=== PATIENT | male | born 1940 | race Caucasian/White ===

== ENCOUNTER 2016-12-14 11:33 | Outpatient (CLI) | payer MEDICARE, OTHER ==
[2016-12-14 12:03] LABS: INR-International Normal Ratio 2.1; Prothrombin Time 23.3 SEC (12.0-14.7)
== END 2016-12-14 11:34 | disposition home or self-care (01) ==
LOC: MADLAB 11:33
PROVIDERS: ATTEND Internal Medicine Cardiovascular Disease
DX: Z09 Encounter for follow-up examination after completed treatment for conditions other than malignant neoplasm (principal); Z86.79 Personal history of other diseases of the circulatory system
CPT/HCPCS: 36415; 85610; 85730

== ENCOUNTER 2016-12-28 13:44 | Outpatient (CLI) | payer MEDICARE, OTHER ==
[2016-12-28 14:24] LABS: INR-International Normal Ratio 1.9; PTT 31.6 SEC (22.9-36.1); Prothrombin Time 21.8 SEC (12.0-14.7)
== END 2016-12-28 13:45 | disposition home or self-care (01) ==
LOC: MADLAB 13:44
PROVIDERS: ATTEND Internal Medicine Cardiovascular Disease
DX: Z09 Encounter for follow-up examination after completed treatment for conditions other than malignant neoplasm (principal); Z86.79 Personal history of other diseases of the circulatory system
CPT/HCPCS: 36415; 85610; 85730

== ENCOUNTER 2017-01-18 13:49 | Outpatient (CLI) | payer MEDICARE, OTHER ==
[2017-01-18 14:50] LABS: INR-International Normal Ratio 1.9; Prothrombin Time 22.2 SEC (12.0-14.7)
== END 2017-01-18 13:50 | disposition home or self-care (01) ==
LOC: MADLABBHPM 13:49
PROVIDERS: ATTEND Internal Medicine Cardiovascular Disease
DX: Z86.79 Personal history of other diseases of the circulatory system (principal)
CPT/HCPCS: 36415; 85610; 85730

== ENCOUNTER 2017-02-08 14:37 | Outpatient (CLI) | payer MEDICARE, OTHER ==
[2017-02-08 15:03] LABS: INR-International Normal Ratio 2.1; PTT 33.1 SEC (22.9-36.1); Prothrombin Time 23.5 SEC (12.0-14.7)
== END 2017-02-08 14:38 | disposition home or self-care (01) ==
LOC: MADLAB 14:37
PROVIDERS: ATTEND Internal Medicine Cardiovascular Disease
DX: Z09 Encounter for follow-up examination after completed treatment for conditions other than malignant neoplasm (principal); Z86.79 Personal history of other diseases of the circulatory system
CPT/HCPCS: 36415; 85610; 85730

== ENCOUNTER 2017-03-29 09:54 | Outpatient (CLI) | payer MEDICARE, OTHER ==
[2017-03-29 10:31] LABS: INR-International Normal Ratio 2.4; Prothrombin Time 26.1 SEC (12.0-14.7)
[2017-03-29 16:58] LABS: PTT 36.7 SEC (22.9-36.1)
== END 2017-03-29 09:55 | disposition home or self-care (01) ==
LOC: MADLAB 09:54
PROVIDERS: ATTEND Internal Medicine Cardiovascular Disease
DX: Z86.79 Personal history of other diseases of the circulatory system (principal)
CPT/HCPCS: 36415; 85610; 85730

== ENCOUNTER 2017-04-21 17:35 | Emergency (ER) | payer MEDICARE, OTHER ==
[2017-04-21] MEDS ORDERED: Nitroglycerin 0.4 MG TAB 1 EACH ONE (17:59)
[2017-04-21 18:18] LABS: #Basophils 0.1 thou/uL (0.0-0.2); #Eosinphils 0.2 thou/uL (0.0-0.7); #Monocytes 0.7 thou/uL (0.11-0.59); #Neutrophils 5.8 thou/uL (1.40-6.50); %Basophils 1.1 % (0.0-1.0); %Eosinophils 3.1 % (0.0-10.0); %Lymphocytes 12.4 % (21.0-51.0); %Monocytes 8.5 % (0.0-10.0); %Neutrophils 74.8 % (42.0-75.0); Hemoglobin 13.8 g/dL (14.0-18.0); Mean Corpuscular HGB CONC 36.1 g/dL (32.0-36.0); Mean Corpuscular Hemoglobin 33.2 pg (27.0-31.0); Mean Corpuscular Volume 91.8 fL (80.0-94.0); Mean Platelet Volume 7.4 fL (7.4-10.4); Platelet Count 180 thou/uL (130-400); RBC Distribution Width 12.2 % (11.5-14.5); Red Blood Cell (RBC) Count 4.17 mill/uL (4.70-6.10); White Blood Cell (WBC) Count 7.7 thou/uL (4.8-10.8)
[2017-04-21 18:21] LABS: ALT (SGPT) 14 U/L (8-55); AST (SGOT) 18 U/L (5-34); Albumin 3.8 g/dL (3.4-4.8); Alkaline Phosphatase 65 U/L (40-150); Anion Gap 12 mmol/L (10-20); BUN (Urea Nitrogen) 19 mg/dL (8.4-25.7); Bilirubin, Total 0.8 mg/dL (0.2-1.2); Calc. Creatinine Clearance 0 mL/min (70-130); Calcium 8.7 mg/dL (7.8-10.44); Carbon Dioxide 25 mmol/L (23-31); Chloride 108 mmol/L (98-107); Estimated GFR-MDRD 75; Globulin 2.5 g/dL (2.4-3.5); Glucose 141 mg/dL (83-110); Potassium 3.9 mmol/L (3.5-5.1); Protein, Total 6.3 g/dL (5.8-8.1); Sodium 141 mmol/L (136-145)
[2017-04-21 18:22] LABS: Troponin I 0.013 ng/mL (< 0.028)
[2017-04-21 18:23] LABS: INR-International Normal Ratio 2.9; PTT 39.9 SEC (22.9-36.1); Prothrombin Time 30.1 SEC (12.0-14.7)
[2017-04-21 18:35] LABS: D-Dimer Test Less than 0.27 *mcg/mL (0.27-0.43)
[2017-04-21 18:39] LABS: Bilirubin Negative (Negative); Blood, Urine Trace (Negative); Clarity Clear (Clear); Glucose, Urine (Dipstick) Negative (Negative); Leukocyte Negative (Negative); Nitrite Negative (Negative); Protein, Urine (Dipstick) Negative (Neg-Trace); Urobilinogen 0.2 mg/dL (0.2-1.0)
[2017-04-21 18:53] LABS: RBC/HPF 0-3 HPF (0-3); Squamous Epithelial 0-3 HPF (0-3); WBC/HPF 0-3 HPF (0-3)
[2017-04-21 18:54] LABS: Bacteria/HPF Rare-Few HPF (None Seen)
--- NOTE | 2017-04-21 18:56 | RAD ---
UPRIGHT PORTABLE CHEST ONE VIEW: HISTORY: A 76-year-old male with chest pain. COMPARISON: 08/17/2015, 12/22/2015. FINDINGS: Post-op midline sternotomy and left ICD. Minimal cardiomegaly. No confluent pneumonia, overt edema , or pleural effusion. Stable from prior study. IMPRESSION: Mild cardiomegaly. Post-op midline sternotomy and left ICD. No significant acute process. POS: [facility]
== END 2017-04-21 19:40 | disposition short-term general hospital (02) ==
LOC: MADERS 17:35
DX: R07.9 Chest pain, unspecified (principal); M54.12 Radiculopathy, cervical region; M19.90 Unspecified osteoarthritis, unspecified site; I49.9 Cardiac arrhythmia, unspecified; J45.909 Unspecified asthma, uncomplicated
CPT/HCPCS: 71010; 80053; 81003; 81015; 82553; 83605; 83880; 84484; 85025; 85379; 85610; 85730; 93005; 94760

== ENCOUNTER 2017-07-05 11:59 | Outpatient (CLI) | payer MEDICARE, OTHER ==
[2017-07-05 12:24] LABS: PTT 41.6 SEC (22.9-36.1); Prothrombin Time 32.2 SEC (12.0-14.7)
== END 2017-07-05 12:00 | disposition home or self-care (01) ==
LOC: MADLAB 11:59
PROVIDERS: ATTEND Internal Medicine Cardiovascular Disease
DX: I48.2 Chronic atrial fibrillation (principal)
CPT/HCPCS: 36415; 85610; 85730

== ENCOUNTER 2017-08-24 11:16 | Outpatient (CLI) | payer MEDICARE, OTHER ==
[2017-08-24 12:04] LABS: Prothrombin Time 32.3 SEC (12.0-14.7)
== END 2017-08-24 11:17 | disposition home or self-care (01) ==
LOC: MADLAB 11:16
PROVIDERS: ATTEND Internal Medicine Cardiovascular Disease
DX: I48.2 Chronic atrial fibrillation (principal)
CPT/HCPCS: 36415; 85610

== ENCOUNTER 2017-10-28 11:35 | Outpatient (CLI) | payer MEDICARE, OTHER ==
[2017-10-28 13:20] LABS: Prothrombin Time 45.7 SEC (12.0-14.7)
[2017-10-28 13:38] LABS: INR-International Normal Ratio 4.6
== END 2017-10-28 11:36 | disposition home or self-care (01) ==
LOC: MADLAB 11:35
PROVIDERS: ATTEND Internal Medicine Cardiovascular Disease
DX: I48.2 Chronic atrial fibrillation (principal)
CPT/HCPCS: 36415; 85610

== ENCOUNTER 2017-11-02 12:04 | Emergency (ER) | payer MEDICARE, OTHER ==
--- NOTE | 2017-11-02 12:49 | RAD ---
CHEST PA AND LATERAL: Date: 11/02/17 HISTORY: 77-year-old male with cough. COMPARISON: 12/22/15 and 04/21/17. FINDINGS: Marked cardiomegaly, somewhat increased in size from the prior study. Postop midline sternotomy and l eft ICD changes. Blunting to both costophrenic angles suggesting small pleural effusions. No confluen t pneumonia or overt edema. Atherosclerosis of aorta with ectasia. IMPRESSION: Marked cardiomegaly, slightly larger than on the prior study. Bilateral costophrenic angle blunting s uggesting small pleural effusions. No confluent pneumonia, overt edema, or other overt acute process. POS: [facility]
[2017-11-02 13:19] LABS: #Basophils 0.2 thou/uL (0.0-0.2); #Eosinphils 0.1 thou/uL (0.0-0.7); #Lymphocytes 0.8 thou/uL (1.20-3.40); #Monocytes 0.9 thou/uL (0.11-0.59); #Neutrophils 7.7 thou/uL (1.40-6.50); %Basophils 1.8 % (0.0-1.0); %Eosinophils 0.7 % (0.0-10.0); %Lymphocytes 8.6 % (21.0-51.0); %Monocytes 9.6 % (0.0-10.0); %Neutrophils 79.3 % (42.0-75.0); Hemoglobin 12.9 g/dL (14.0-18.0); Mean Corpuscular HGB CONC 33.4 g/dL (32.0-36.0); Mean Corpuscular Hemoglobin 31.2 pg (27.0-31.0); Mean Corpuscular Volume 93.3 fl (80.0-94.0); Mean Platelet Volume 8.2 fL (7.4-10.4); Platelet Count 171 thou/uL (130-400); Red Blood Cell (RBC) Count 4.15 mill/uL (4.70-6.10); White Blood Cell (WBC) Count 9.7 thou/uL (4.8-10.8)
[2017-11-02 13:35] LABS: Prothrombin Time 45.5 SEC (12.0-14.7)
[2017-11-02 13:37] LABS: Anion Gap 16 mmol/L (10-20); BUN (Urea Nitrogen) 13 mg/dL (8.4-25.7); Calc. Creatinine Clearance 0 mL/min (70-130); Calcium 8.8 mg/dL (7.8-10.44); Carbon Dioxide 24 mmol/L (23-31); Chloride 106 mmol/L (98-107); Estimated GFR-MDRD Greater than 90; Glucose 110 mg/dL (83-110); INR-International Normal Ratio 4.5; Magnesium 1.9 mg/dL (1.6-2.6); Potassium 3.6 mmol/L (3.5-5.1); Sodium 142 mmol/L (136-145)
== END 2017-11-02 14:00 | disposition home or self-care (01) ==
LOC: MADERS 12:04
DX: J90 Pleural effusion, not elsewhere classified (principal); Z86.718 Personal history of other venous thrombosis and embolism; J45.909 Unspecified asthma, uncomplicated; I48.92 Unspecified atrial flutter; I34.0 Nonrheumatic mitral (valve) insufficiency; I38 Endocarditis, valve unspecified; Z79.899 Other long term (current) drug therapy; Z79.01 Long term (current) use of anticoagulants
CPT/HCPCS: 71020; 80048; 83735; 83880; 85025; 85610; 93005

== ENCOUNTER 2018-02-01 13:13 | Outpatient (CLI) | payer MEDICARE, OTHER ==
[2018-02-01 14:14] LABS: INR-International Normal Ratio 2.5; Prothrombin Time 28.3 SEC (12.0-14.7)
== END 2018-02-01 13:14 | disposition home or self-care (01) ==
LOC: MADLABBHPM 13:13
PROVIDERS: ATTEND Family Medicine
DX: I48.2 Chronic atrial fibrillation (principal)
CPT/HCPCS: 36415; 85610

== ENCOUNTER 2018-03-16 14:46 | Outpatient (CLI) | payer MEDICARE, OTHER ==
[2018-03-16 15:05] LABS: INR-International Normal Ratio 3.1; Prothrombin Time 33.2 SEC (12.0-14.7)
== END 2018-03-16 14:47 | disposition home or self-care (01) ==
LOC: MADLAB 14:46
PROVIDERS: ATTEND Internal Medicine Cardiovascular Disease
DX: I48.2 Chronic atrial fibrillation (principal)
CPT/HCPCS: 36415; 85610

== ENCOUNTER 2018-07-04 14:14 | Outpatient (CLI) | payer MEDICARE, OTHER ==
[2018-07-04 14:43] LABS: INR-International Normal Ratio 2.7; Prothrombin Time 28.7 SEC (12.0-14.7)
== END 2018-07-04 14:15 | disposition home or self-care (01) ==
LOC: MADLAB 14:14
PROVIDERS: ATTEND Internal Medicine Cardiovascular Disease
DX: I48.2 Chronic atrial fibrillation (principal)
CPT/HCPCS: 36415; 85610

== ENCOUNTER 2018-08-24 10:29 | Emergency (ER) | payer MEDICARE, OTHER ==
--- NOTE | 2018-08-24 11:44 | RAD ---
RIGHT FOOT THREE VIEWS: HISTORY: Right foot pain. FINDINGS: Lisfranc joint alignment is anatomic. The plantar arch is maintained. Moderate joint space narrowin g and osteophytosis throughout the foot. Hallux valgus and bunion deformity. No acute fracture, dis location, or aggressive osseous erosions. Prominent calcification throughout the arterial structures . Large plantar enthesophyte at the inferior aspect of the calcaneus. IMPRESSION: 1. Osteoarthritic changes. 2. Hallux valgus and bunion deformity. 3. Plantar heel spur. 4. Atherosclerosis. POS: [facility]
== END 2018-08-24 11:50 | disposition home or self-care (01) ==
LOC: MADERS 10:29
DX: S93.601A Unspecified sprain of right foot, initial encounter (principal); J45.909 Unspecified asthma, uncomplicated; I49.9 Cardiac arrhythmia, unspecified; Z87.442 Personal history of urinary calculi; Z86.718 Personal history of other venous thrombosis and embolism; X50.1XXA Overexertion from prolonged static or awkward postures, initial encounter

== ENCOUNTER 2018-11-04 14:07 | Outpatient (CLI) | payer MEDICARE, OTHER ==
--- NOTE | 2018-11-04 15:44 | RAD ---
RADIOGRAPH CHEST 2 VIEWS: DATE: 11/04/18 TIME: 1419 hours HISTORY: 78-year-old male for health maintenance FINDINGS: There is cardiomegaly. The thoracic aorta is tortuous and ectatic. There is no evidence of air space density, pulmonary edema, or pneumothorax. There is no pleural effusion. There is a dual lead left subclavian pacemaker. There are sternotomy wires. The transverse diameter o f the heart appears slightly smaller on the current study compared to previous. This difference may o r may not be due to slight positional differences. IMPRESSION: 1. No acute pulmonary findings. 2. Cardiomegaly without congestive heart failure. 3. Ectasia of thoracic aorta. 4. Pacemaker. 5. Previous open heart surgery. lara [] POS: [facility]
== END 2018-11-04 14:08 | disposition home or self-care (01) ==
LOC: MADRAD 14:07
PROVIDERS: ATTEND Internal Medicine
DX: Z00.00 Encounter for general adult medical examination without abnormal findings (principal); I51.7 Cardiomegaly; I77.810 Thoracic aortic ectasia; Z95.0 Presence of cardiac pacemaker
CPT/HCPCS: 71046

== ENCOUNTER 2019-01-02 13:58 | Outpatient (CLI) | payer MEDICARE, OTHER ==
[2019-01-02 14:18] LABS: INR-International Normal Ratio 2.2; Prothrombin Time 24.5 SEC (12.0-14.7)
== END 2019-01-02 13:59 | disposition home or self-care (01) ==
LOC: MADLAB 13:58
PROVIDERS: ATTEND Internal Medicine Cardiovascular Disease
DX: Z51.81 Encounter for therapeutic drug level monitoring (principal); I48.2 Chronic atrial fibrillation; Z79.01 Long term (current) use of anticoagulants
CPT/HCPCS: 36415; 85610

== ENCOUNTER 2019-01-30 15:37 | Emergency (ER) | payer MEDICARE, OTHER ==
--- NOTE | 2019-01-30 16:46 | RAD ---
CHEST PA AND LATERAL: History: Right sided chest discomfort. Cough. Comparison: 11-04-18 FINDINGS: Minimal cardiomegaly. Extensive atherosclerotic ectatic changes of the aorta. Post underlying sternot jose g. Left ICD. Hyperinflation and chronic lung changes bilaterally, stable. IMPRESSION: Stable hyperinflation and chronic lung changes. Stable cardiomegaly with post underlying sternotomy a nd left ICD. No significant new process. POS: [facility]
== END 2019-01-30 16:43 | disposition home or self-care (01) ==
LOC: MADERS 15:37
DX: R09.1 Pleurisy (principal); K43.9 Ventral hernia without obstruction or gangrene; Z86.718 Personal history of other venous thrombosis and embolism; J45.909 Unspecified asthma, uncomplicated; Z79.899 Other long term (current) drug therapy; Z79.51 Long term (current) use of inhaled steroids
CPT/HCPCS: 71046

== ENCOUNTER 2019-02-28 14:36 | Outpatient (CLI) | payer MEDICARE, OTHER ==
[2019-02-28 15:00] LABS: INR-International Normal Ratio 2.6
== END 2019-02-28 14:37 | disposition home or self-care (01) ==
LOC: MADLABBHPM 14:36
PROVIDERS: ATTEND Internal Medicine Cardiovascular Disease
DX: I48.2 Chronic atrial fibrillation (principal)
CPT/HCPCS: 36415; 85610

== ENCOUNTER 2019-05-17 10:48 | Outpatient (CLI) | payer MEDICARE, OTHER ==
[2019-05-17 12:02] LABS: INR-International Normal Ratio 2.3; Prothrombin Time 25.6 SEC (12.0-14.7)
== END 2019-05-17 10:49 | disposition home or self-care (01) ==
LOC: MADLAB 10:48
PROVIDERS: ATTEND Internal Medicine Cardiovascular Disease
DX: I48.0 Paroxysmal atrial fibrillation (principal)
CPT/HCPCS: 36415; 85610

== ENCOUNTER 2019-09-07 14:01 | Outpatient (CLI) | payer MEDICARE, OTHER ==
[2019-09-07 14:25] LABS: INR-International Normal Ratio 2.5
== END 2019-09-07 14:02 | disposition home or self-care (01) ==
LOC: MADLAB 14:01
PROVIDERS: ATTEND Internal Medicine Cardiovascular Disease
DX: I48.0 Paroxysmal atrial fibrillation (principal)
CPT/HCPCS: 36415; 85610

== ENCOUNTER 2019-11-09 14:12 | Emergency (ER) | payer MEDICARE, OTHER ==
[2019-11-09] MEDS ORDERED: Loperamide HCl 2 MG CAP ONE (14:55)
== END 2019-11-09 15:04 | disposition home or self-care (01) ==
LOC: MADERS 14:12
DX: R19.7 Diarrhea, unspecified (principal); M19.90 Unspecified osteoarthritis, unspecified site; I49.9 Cardiac arrhythmia, unspecified; I48.92 Unspecified atrial flutter; J45.909 Unspecified asthma, uncomplicated; Z79.899 Other long term (current) drug therapy; Z79.01 Long term (current) use of anticoagulants; Z86.718 Personal history of other venous thrombosis and embolism; Z79.51 Long term (current) use of inhaled steroids
CPT/HCPCS: 99283

== ENCOUNTER 2019-11-28 14:52 | Emergency (ER) | payer MEDICARE, OTHER ==
[~2019-11-28 14:52] MED LIST: Sterile Water Irrigation 1,000 ML BOT ONE
[2019-11-28 15:33] LABS: Bilirubin Small (Negative); Blood, Urine Large (Negative); Clarity Cloudy (Clear); Glucose, Urine (Dipstick) Negative (Negative); Leukocyte Trace (Negative); Nitrite Negative (Negative); Protein, Urine (Dipstick) 100 mg/dL (Neg-Trace)
[2019-11-28 15:35] LABS: Bacteria/HPF Rare-Few HPF (None Seen); RBC/HPF Greater than 50 HPF (0-3); Squamous Epithelial None Seen HPF (0-3)
[2019-11-28 15:42] LABS: #Basophils 0.1 thou/uL (0.0-0.2); #Eosinphils 0.1 thou/uL (0.0-0.7); #Monocytes 0.8 thou/uL (0.11-0.59); #Neutrophils 8.1 thou/uL (1.40-6.50); %Basophils 1.4 % (0.0-1.0); %Eosinophils 1.1 % (0.0-10.0); %Lymphocytes 9.7 % (21.0-51.0); %Monocytes 8.1 % (0.0-10.0); %Neutrophils 79.7 % (42.0-75.0); Hemoglobin 11.9 g/dL (14.0-18.0); Mean Corpuscular HGB CONC 31.3 g/dL (32.0-36.0); Mean Corpuscular Hemoglobin 29.8 pg (27.0-31.0); Mean Corpuscular Volume 95.3 fL (78.0-98.0); Mean Platelet Volume 8.3 fL (7.4-10.4); Platelet Count 236 thou/uL (130-400); RBC Distribution Width 12.6 % (11.5-14.5); Red Blood Cell (RBC) Count 4.01 mill/uL (4.70-6.10); White Blood Cell (WBC) Count 10.2 thou/uL (4.8-10.8)
[2019-11-28 15:50] LABS: Calcium 8.2 mg/dL (7.8-10.44); Chloride 108 mmol/L (98-107); Potassium 3.9 mmol/L (3.5-5.1); Sodium 142 mmol/L (136-145)
[2019-11-28] MEDS ORDERED: Lidocaine 2% Jelly 5 ML TUBE ONE (15:54)
[2019-11-28 16:00] LABS: PTT 42.3 SEC (22.9-36.1)
[2019-11-28 16:01] LABS: Prothrombin Time 40.7 SEC (12.0-14.7)
[2019-11-28 16:06] LABS: INR-International Normal Ratio 4.3
[2019-11-28 16:11] LABS: Anion Gap 15 mmol/L (10-20); BUN (Urea Nitrogen) 14 mg/dL (8.4-25.7); Calc. Creatinine Clearance 0 mL/min (70-130); Carbon Dioxide 23 mmol/L (23-31); Estimated GFR-MDRD 87; Glucose 127 mg/dL (83-110)
== END 2019-11-28 18:49 | disposition home or self-care (01) ==
LOC: MADERS 14:52
DX: R31.0 Gross hematuria (principal); R00.0 Tachycardia, unspecified; R79.1 Abnormal coagulation profile; M19.90 Unspecified osteoarthritis, unspecified site; I49.9 Cardiac arrhythmia, unspecified; I48.92 Unspecified atrial flutter; J45.909 Unspecified asthma, uncomplicated; Z79.899 Other long term (current) drug therapy; Z79.51 Long term (current) use of inhaled steroids; Z86.718 Personal history of other venous thrombosis and embolism; Z79.01 Long term (current) use of anticoagulants
CPT/HCPCS: 51702; 80048; 81003; 81015; 83880; 84484; 85025; 85610; 85730; 87086; 87186; 93005; 96374; A4217

== ENCOUNTER 2019-12-04 13:07 | Outpatient (CLI) | payer MEDICARE, OTHER ==
[2019-12-04 13:31] LABS: INR-International Normal Ratio 1.6
== END 2019-12-04 13:08 | disposition home or self-care (01) ==
LOC: MADLAB 13:07
PROVIDERS: ATTEND Internal Medicine Cardiovascular Disease
DX: Z51.81 Encounter for therapeutic drug level monitoring (principal); I48.0 Paroxysmal atrial fibrillation; Z79.01 Long term (current) use of anticoagulants
CPT/HCPCS: 36415; 85610

== ENCOUNTER 2019-12-12 09:40 | Outpatient (CLI) | payer MEDICARE, OTHER ==
[2019-12-12 10:00] LABS: INR-International Normal Ratio 1.4; Prothrombin Time 16.7 SEC (12.0-14.7)
== END 2019-12-12 09:41 | disposition home or self-care (01) ==
LOC: MADLAB 09:40
PROVIDERS: ATTEND Internal Medicine Cardiovascular Disease
DX: I48.0 Paroxysmal atrial fibrillation (principal)
CPT/HCPCS: 36415; 85610

== ENCOUNTER 2019-12-25 11:34 | Outpatient (CLI) | payer MEDICARE, OTHER ==
[2019-12-25 12:00] LABS: INR-International Normal Ratio 2.5; Prothrombin Time 26.7 SEC (12.0-14.7)
== END 2019-12-25 11:35 | disposition home or self-care (01) ==
LOC: MADLAB 11:34
PROVIDERS: ATTEND Internal Medicine Cardiovascular Disease
DX: I48.0 Paroxysmal atrial fibrillation (principal)
CPT/HCPCS: 36415; 85610

== ENCOUNTER 2020-01-09 13:51 | Outpatient (CLI) | payer MEDICARE, OTHER ==
[2020-01-09 14:18] LABS: INR-International Normal Ratio 2.1; Prothrombin Time 23.3 SEC (12.0-14.7)
== END 2020-01-09 13:52 | disposition home or self-care (01) ==
LOC: MADLAB 13:51
PROVIDERS: ATTEND Internal Medicine Cardiovascular Disease
DX: Z51.81 Encounter for therapeutic drug level monitoring (principal); I48.0 Paroxysmal atrial fibrillation; Z79.01 Long term (current) use of anticoagulants
CPT/HCPCS: 36415; 85610

== ENCOUNTER 2020-02-01 08:56 | Outpatient (CLI) | payer MEDICARE, OTHER ==
[2020-02-01 09:25] LABS: Prothrombin Time 39.4 SEC (12.0-14.7)
[2020-02-01 09:42] LABS: INR-International Normal Ratio 4.1
== END 2020-02-01 08:57 | disposition home or self-care (01) ==
LOC: MADLAB 08:56
PROVIDERS: ATTEND Internal Medicine Cardiovascular Disease
DX: I48.0 Paroxysmal atrial fibrillation (principal)
CPT/HCPCS: 36415; 85610

== ENCOUNTER 2020-02-07 10:48 | Outpatient (CLI) | payer MEDICARE, OTHER ==
[2020-02-07 21:54] LABS: INR-International Normal Ratio 1.1; Prothrombin Time 14.6 SEC (12.0-14.7)
== END 2020-02-07 10:49 | disposition home or self-care (01) ==
LOC: MADLAB 10:48
PROVIDERS: ATTEND Internal Medicine Cardiovascular Disease
DX: Z51.81 Encounter for therapeutic drug level monitoring (principal); I48.0 Paroxysmal atrial fibrillation; Z79.01 Long term (current) use of anticoagulants
CPT/HCPCS: 36415; 85610

== ENCOUNTER 2020-03-18 09:20 | Outpatient (CLI) | payer MEDICARE, OTHER ==
[2020-03-18 09:53] LABS: INR-International Normal Ratio 2.5; Prothrombin Time 26.9 SEC (12.0-14.7)
== END 2020-03-18 09:21 | disposition home or self-care (01) ==
LOC: MADLAB 09:20
PROVIDERS: ATTEND Internal Medicine
DX: I48.0 Paroxysmal atrial fibrillation (principal)
CPT/HCPCS: 36415; 85610

== ENCOUNTER 2020-04-24 11:43 | Outpatient (CLI) | payer MEDICARE, OTHER ==
[2020-04-24 12:09] LABS: INR-International Normal Ratio 3.3; Prothrombin Time 33.2 sec (12.0-14.7)
== END 2020-04-24 11:44 | disposition home or self-care (01) ==
LOC: MADLAB 11:43
PROVIDERS: ATTEND Internal Medicine Cardiovascular Disease
DX: I48.0 Paroxysmal atrial fibrillation (principal)
CPT/HCPCS: 36415; 85610

== ENCOUNTER 2020-05-06 13:48 | Outpatient (CLI) | payer MEDICARE, OTHER ==
[2020-05-06 14:07] LABS: INR-International Normal Ratio 3.5; Prothrombin Time 34.7 sec (12.0-14.7)
== END 2020-05-06 13:49 | disposition home or self-care (01) ==
LOC: MADLAB 13:48
PROVIDERS: ATTEND Internal Medicine Cardiovascular Disease
DX: Z51.81 Encounter for therapeutic drug level monitoring (principal); I48.0 Paroxysmal atrial fibrillation; Z79.01 Long term (current) use of anticoagulants
CPT/HCPCS: 36415; 85610

== ENCOUNTER 2020-05-15 11:04 | Outpatient (CLI) | payer MEDICARE, OTHER ==
[2020-05-15 12:17] LABS: Prothrombin Time 22.5 sec (12.0-14.7)
== END 2020-05-15 11:05 | disposition home or self-care (01) ==
LOC: MADLAB 11:04
PROVIDERS: ATTEND Internal Medicine Cardiovascular Disease
DX: I48.0 Paroxysmal atrial fibrillation (principal)
CPT/HCPCS: 36415; 85610

== ENCOUNTER 2020-07-22 09:58 | Outpatient (CLI) | payer MEDICARE, OTHER ==
[2020-07-22 10:26] LABS: INR-International Normal Ratio 2.1; Prothrombin Time 23.8 sec (12.0-14.7)
== END 2020-07-22 09:59 | disposition home or self-care (01) ==
LOC: MADLAB 09:58
PROVIDERS: ATTEND Internal Medicine Cardiovascular Disease
DX: I48.0 Paroxysmal atrial fibrillation (principal)
CPT/HCPCS: 36415; 85610

== ENCOUNTER 2020-09-16 08:49 | Outpatient (CLI) | payer MEDICARE, OTHER ==
[2020-09-16 09:12] LABS: INR-International Normal Ratio 1.6; Prothrombin Time 19.4 sec (12.0-14.7)
[2020-09-16 09:13] LABS: #Basophils 0.2 thou/uL (0.0-0.2); #Eosinphils 0.3 thou/uL (0.0-0.7); #Lymphocytes 0.9 thou/uL (1.20-3.40); #Monocytes 0.8 thou/uL (0.11-0.59); #Neutrophils 5.9 thou/uL (1.40-6.50); %Basophils 2.4 % (0.0-1.0); %Eosinophils 3.4 % (0.0-10.0); %Lymphocytes 11.1 % (21.0-51.0); %Monocytes 9.8 % (0.0-10.0); %Neutrophils 73.2 % (42.0-75.0); Hemoglobin 12.3 g/dL (14.0-18.0); Mean Corpuscular HGB CONC 32.1 g/dL (32.0-36.0); Mean Corpuscular Hemoglobin 29.7 pg (27.0-31.0); Mean Corpuscular Volume 92.5 fL (78.0-98.0); Mean Platelet Volume 6.6 fL (7.4-10.4); Platelet Count 201 thou/uL (130-400); RBC Distribution Width 12.8 % (11.5-14.5); Red Blood Cell (RBC) Count 4.15 mill/uL (4.70-6.10)
== END 2020-09-16 08:50 | disposition home or self-care (01) ==
LOC: MADLAB 08:49
PROVIDERS: ATTEND Internal Medicine Cardiovascular Disease
DX: I48.19 Other persistent atrial fibrillation (principal)
CPT/HCPCS: 36415; 85025; 85610

== ENCOUNTER 2020-09-30 11:30 | Outpatient (CLI) | payer MEDICARE, OTHER ==
[2020-09-30 11:48] LABS: #Basophils 0.1 thou/uL (0.0-0.2); #Eosinphils 0.2 thou/uL (0.0-0.7); #Lymphocytes 0.8 thou/uL (1.20-3.40); #Monocytes 0.7 thou/uL (0.11-0.59); #Neutrophils 4.4 thou/uL (1.40-6.50); %Basophils 1.6 % (0.0-1.0); %Eosinophils 2.9 % (0.0-10.0); %Lymphocytes 13.1 % (21.0-51.0); %Monocytes 11.1 % (0.0-10.0); %Neutrophils 71.4 % (42.0-75.0); Hemoglobin 12.7 g/dL (14.0-18.0); Mean Corpuscular HGB CONC 31.8 g/dL (32.0-36.0); Mean Corpuscular Hemoglobin 30.1 pg (27.0-31.0); Mean Corpuscular Volume 94.9 fL (78.0-98.0); Mean Platelet Volume 6.7 fL (7.4-10.4); Platelet Count 175 thou/uL (130-400); RBC Distribution Width 12.6 % (11.5-14.5); Red Blood Cell (RBC) Count 4.23 mill/uL (4.70-6.10); White Blood Cell (WBC) Count 6.2 thou/uL (4.8-10.8)
[2020-09-30 11:49] LABS: INR-International Normal Ratio 2.5; Prothrombin Time 27.1 sec (12.0-14.7)
== END 2020-09-30 11:31 | disposition home or self-care (01) ==
LOC: MADLAB 11:30
PROVIDERS: ATTEND Internal Medicine Cardiovascular Disease
DX: I48.19 Other persistent atrial fibrillation (principal); I48.0 Paroxysmal atrial fibrillation
CPT/HCPCS: 36415; 85025; 85610

== ENCOUNTER 2020-10-16 11:30 | Outpatient (CLI) | payer MEDICARE, OTHER ==
[2020-10-16 11:47] LABS: #Basophils 0.1 thou/uL (0.0-0.2); #Eosinphils 0.3 thou/uL (0.0-0.7); #Lymphocytes 0.7 thou/uL (1.20-3.40); #Monocytes 0.7 thou/uL (0.11-0.59); #Neutrophils 4.3 thou/uL (1.40-6.50); %Basophils 2.1 % (0.0-1.0); %Eosinophils 4.6 % (0.0-10.0); %Lymphocytes 11.2 % (21.0-51.0); %Monocytes 10.9 % (0.0-10.0); %Neutrophils 71.3 % (42.0-75.0); Hemoglobin 13.1 g/dL (14.0-18.0); Mean Corpuscular HGB CONC 32.4 g/dL (32.0-36.0); Mean Corpuscular Hemoglobin 30.5 pg (27.0-31.0); Mean Corpuscular Volume 94.1 fL (78.0-98.0); Mean Platelet Volume 7.1 fL (7.4-10.4); Platelet Count 146 thou/uL (130-400); RBC Distribution Width 12.4 % (11.5-14.5); Red Blood Cell (RBC) Count 4.29 mill/uL (4.70-6.10); White Blood Cell (WBC) Count 6.1 thou/uL (4.8-10.8)
[2020-10-16 11:51] LABS: INR-International Normal Ratio 3.5; Prothrombin Time 36.2 sec (12.0-14.7)
== END 2020-10-16 11:31 | disposition home or self-care (01) ==
LOC: MADLAB 11:30
PROVIDERS: ATTEND Internal Medicine Cardiovascular Disease
DX: I48.19 Other persistent atrial fibrillation (principal)
CPT/HCPCS: 36415; 85025; 85610

== ENCOUNTER 2020-11-01 10:30 | Outpatient (CLI) | payer MEDICARE, OTHER ==
[2020-11-01 10:54] LABS: #Basophils 0.1 thou/uL (0.0-0.2); #Eosinphils 0.4 thou/uL (0.0-0.7); #Lymphocytes 0.7 thou/uL (1.20-3.40); #Monocytes 0.8 thou/uL (0.11-0.59); #Neutrophils 4.4 thou/uL (1.40-6.50); %Basophils 2.1 % (0.0-1.0); %Eosinophils 6.9 % (0.0-10.0); %Lymphocytes 10.5 % (21.0-51.0); %Neutrophils 68.5 % (42.0-75.0); Hemoglobin 13.2 g/dL (14.0-18.0); Mean Corpuscular Hemoglobin 29.7 pg (27.0-31.0); Mean Corpuscular Volume 92.6 fL (78.0-98.0); Mean Platelet Volume 7.1 fL (7.4-10.4); Platelet Count 197 thou/uL (130-400); Red Blood Cell (RBC) Count 4.45 mill/uL (4.70-6.10); White Blood Cell (WBC) Count 6.4 thou/uL (4.8-10.8)
[2020-11-01 11:01] LABS: INR-International Normal Ratio 2.6; Prothrombin Time 28.2 sec (12.0-14.7)
== END 2020-11-01 10:31 | disposition home or self-care (01) ==
LOC: MADLAB 10:30
PROVIDERS: ATTEND Internal Medicine Cardiovascular Disease
DX: I48.19 Other persistent atrial fibrillation (principal); I48.0 Paroxysmal atrial fibrillation
CPT/HCPCS: 36415; 85025; 85610

== ENCOUNTER 2020-12-05 11:13 | Outpatient (CLI) | payer MEDICARE, OTHER ==
[2020-12-05 12:03] LABS: INR-International Normal Ratio 1.4; Prothrombin Time 17.3 sec (12.0-14.7)
== END 2020-12-05 11:14 | disposition home or self-care (01) ==
LOC: MADLAB 11:13
PROVIDERS: ATTEND Internal Medicine Cardiovascular Disease
DX: I48.19 Other persistent atrial fibrillation (principal); I48.0 Paroxysmal atrial fibrillation
CPT/HCPCS: 36415; 85610

== ENCOUNTER 2020-12-11 12:24 | Outpatient (CLI) | payer MEDICARE, OTHER ==
[2020-12-11 13:06] LABS: Prothrombin Time 23.2 sec (12.0-14.7)
== END 2020-12-11 12:25 | disposition home or self-care (01) ==
LOC: MADLAB 12:24
PROVIDERS: ATTEND Internal Medicine Cardiovascular Disease
DX: I48.19 Other persistent atrial fibrillation (principal); I48.0 Paroxysmal atrial fibrillation
CPT/HCPCS: 36415; 85610

== ENCOUNTER 2020-12-27 08:17 | Outpatient (CLI) | payer MEDICARE | END 2020-12-27 08:18 | disposition home or self-care (01) | LOC: MADLAB 08:17 | PROVIDERS: ATTEND Internal Medicine Cardiovascular Disease | DX: I48.0 Paroxysmal atrial fibrillation (principal) | CPT/HCPCS: 36415; 85610 ==

== ENCOUNTER 2021-01-24 10:09 | Outpatient (CLI) | payer MEDICARE, OTHER ==
[2021-01-24 10:33] LABS: INR-International Normal Ratio 2.4
== END 2021-01-24 10:10 | disposition home or self-care (01) ==
LOC: MADLAB 10:09
PROVIDERS: ATTEND Internal Medicine Cardiovascular Disease
DX: I48.19 Other persistent atrial fibrillation (principal)
CPT/HCPCS: 36415; 85610

== ENCOUNTER 2021-02-13 11:26 | Outpatient (CLI) | payer MEDICARE, OTHER ==
[2021-02-13 11:47] LABS: INR-International Normal Ratio 2.4; Prothrombin Time 26.7 sec (12.0-14.7)
== END 2021-02-13 11:27 | disposition home or self-care (01) ==
LOC: MADLAB 11:26
PROVIDERS: ATTEND Internal Medicine Cardiovascular Disease
DX: I48.0 Paroxysmal atrial fibrillation (principal)
CPT/HCPCS: 36415; 85610

== ENCOUNTER 2021-02-28 10:44 | Outpatient (CLI) | payer MEDICARE ==
[2021-02-28 11:04] LABS: Prothrombin Time 32.1 sec (12.0-14.7)
== END 2021-02-28 10:45 | disposition home or self-care (01) ==
LOC: MADLAB 10:44
PROVIDERS: ATTEND Internal Medicine Cardiovascular Disease
DX: I48.19 Other persistent atrial fibrillation (principal); I48.0 Paroxysmal atrial fibrillation
CPT/HCPCS: 36415; 85610

== ENCOUNTER 2021-03-26 10:15 | Outpatient (CLI) | payer MEDICARE ==
[2021-03-26 10:37] LABS: INR-International Normal Ratio 2.3; Prothrombin Time 26.1 sec (12.0-14.7)
== END 2021-03-26 10:16 | disposition home or self-care (01) ==
LOC: MADLAB 10:15
PROVIDERS: ATTEND Internal Medicine Cardiovascular Disease
DX: Z51.81 Encounter for therapeutic drug level monitoring (principal); I48.19 Other persistent atrial fibrillation
CPT/HCPCS: 36415; 85610

== ENCOUNTER 2021-06-05 09:07 | Outpatient (CLI) | payer MEDICARE ==
[2021-06-05 09:28] LABS: INR-International Normal Ratio 2.1; Prothrombin Time 23.9 sec (12.0-14.7)
== END 2021-06-05 09:08 | disposition home or self-care (01) ==
LOC: MADLAB 09:07
PROVIDERS: ATTEND Internal Medicine
DX: I48.19 Other persistent atrial fibrillation (principal)
CPT/HCPCS: 36415; 85610

== ENCOUNTER 2021-09-24 11:49 | Outpatient (CLI) | payer MEDICARE ==
[2021-09-24 13:09] LABS: INR-International Normal Ratio 2.4; Prothrombin Time 26.3 sec (12.0-14.7)
== END 2021-09-24 11:50 | disposition home or self-care (01) ==
LOC: MADLAB 11:49
PROVIDERS: ATTEND Internal Medicine Cardiovascular Disease
DX: I48.0 Paroxysmal atrial fibrillation (principal)
CPT/HCPCS: 36415; 85610

== ENCOUNTER 2022-02-01 08:11 | Emergency (ER) | payer MEDICARE ==
[2022-02-01 08:58] LABS: Blood, Urine Negative (Negative); Glucose, Urine (Dipstick) 100 mg/dL (Negative); Specific Gravity, Urine 1.015 (1.005-1.030)
[2022-02-01 08:59] LABS: Clarity Hazy (Clear)
[2022-02-01 09:00] LABS: Bilirubin Unable to Interpret (Negative); Ketone, Urine Unable to Interpret mg/dL (Negative); Leukocyte Unable to Interpret (Negative); Nitrite Unable to Interpret (Negative); Protein, Urine (Dipstick) Unable to Interpret mg/dL (Neg-Trace); Urobilinogen UNABLE TO INTERPRET mg/dL (Less than 2)
[2022-02-01 09:03] LABS: Bacteria/HPF Rare-Few HPF (None Seen); Squamous Epithelial 0-3 HPF (0-3); WBC/HPF 0-3 HPF (0-3)
== END 2022-02-01 09:15 | disposition home or self-care (01) ==
LOC: MADERS 08:11
DX: R33.9 Retention of urine, unspecified (principal); M19.90 Unspecified osteoarthritis, unspecified site; I48.92 Unspecified atrial flutter; J45.909 Unspecified asthma, uncomplicated; Z86.718 Personal history of other venous thrombosis and embolism
CPT/HCPCS: 51702; 81003; 81015

== ENCOUNTER 2022-05-04 09:11 | Outpatient (CLI) | payer MEDICARE | END 2022-05-04 09:12 | disposition home or self-care (01) | LOC: MADLAB 09:11 | PROVIDERS: ATTEND Internal Medicine Cardiovascular Disease | DX: I48.19 Other persistent atrial fibrillation (principal) | CPT/HCPCS: 36415; 85610 ==

== ENCOUNTER 2022-05-14 14:31 | Outpatient (CLI) | payer MEDICARE | END 2022-05-14 14:32 | disposition home or self-care (01) | LOC: MADRAD 14:31 | PROVIDERS: ATTEND Internal Medicine | DX: M51.16 Intervertebral disc disorders with radiculopathy, lumbar region (principal); M51.17 Intervertebral disc disorders with radiculopathy, lumbosacral region; M51.15 Intervertebral disc disorders with radiculopathy, thoracolumbar region; M47.816 Spondylosis without myelopathy or radiculopathy, lumbar region; M47.815 Spondylosis without myelopathy or radiculopathy, thoracolumbar region; M47.817 Spondylosis without myelopathy or radiculopathy, lumbosacral region; M25.78 Osteophyte, vertebrae; M43.15 Spondylolisthesis, thoracolumbar region; M43.16 Spondylolisthesis, lumbar region; Z95.0 Presence of cardiac pacemaker | CPT/HCPCS: 72100 ==

== ENCOUNTER 2022-07-28 11:19 | Outpatient (CLI) | payer MEDICARE ==
[2022-07-28 16:05] LABS: INR-International Normal Ratio 2.9; Prothrombin Time 31.2 sec (12.0-14.7)
== END 2022-07-28 11:20 | disposition home or self-care (01) ==
LOC: MADLAB 11:19
PROVIDERS: ATTEND Internal Medicine Cardiovascular Disease
DX: I48.0 Paroxysmal atrial fibrillation (principal)
CPT/HCPCS: 36415; 85610

== ENCOUNTER 2022-09-14 10:56 | Outpatient (CLI) | payer MEDICARE | END 2022-09-14 10:57 | disposition home or self-care (01) | LOC: MADLAB 10:56 | PROVIDERS: ATTEND Internal Medicine Cardiovascular Disease | DX: I48.0 Paroxysmal atrial fibrillation (principal) | CPT/HCPCS: 36415; 85610 ==

== ENCOUNTER 2022-11-09 11:49 | Outpatient (CLI) | payer MEDICARE ==
[2022-11-09 12:08] LABS: INR-International Normal Ratio 1.7; Prothrombin Time 20.7 sec (12.0-14.7)
== END 2022-11-09 11:50 | disposition home or self-care (01) ==
LOC: MADLAB 11:49
PROVIDERS: ATTEND Internal Medicine Cardiovascular Disease
DX: I48.0 Paroxysmal atrial fibrillation (principal)
CPT/HCPCS: 36415; 85610

== ENCOUNTER 2025-07-12 11:12 | Emergency (ER) | payer MEDICARE | END 2025-07-12 12:40 | disposition home or self-care (01) | LOC: MADERS 11:12 | DX: Z46.6 Encounter for fitting and adjustment of urinary device (principal); I48.91 Unspecified atrial fibrillation; I50.9 Heart failure, unspecified; J45.909 Unspecified asthma, uncomplicated; Z95.0 Presence of cardiac pacemaker | CPT/HCPCS: 99283 ==